=== PATIENT | female | born 1970 | race Caucasian/White ===

== ENCOUNTER 2017-12-31 15:38 | Emergency (ER) | payer SELFPAY ==
[2017-12-31 16:54] LABS: BASO # 0.1 K/uL (0.0-0.2); BASO % 1.3 % (0.0-2.0); EOS % 0.6 % (0.0-4.0); HEMOGLOBIN 13.8 g/dL (12.0-16.0); LYMPH # 1.6 K/uL (1.0-4.3); LYMPH % 26.7 % (20.0-40.0); MEAN CELL VOLUME 86.9 fl (81.0-99.0); MEAN CORPUSCULAR HEMOGLOBIN 28.8 pg (27.0-31.0); MEAN CORPUSCULAR HGB CONC 33.2 g/dL (33.0-37.0); MEAN PLATELET VOLUME 8.8 fl (7.2-11.7); MONO # 0.4 K/uL (0.0-0.8); MONO % 7.4 % (0.0-10.0); NEUT # 3.7 K/uL (1.8-7.0); NRBC % 0.1 % (0.0-0.0); RBC 4.78 Mil/uL (3.80-5.20); RED CELL DISTRIBUTION WIDTH 14.6 % (11.5-14.5); WHITE BLOOD COUNT 5.8 K/uL (4.8-10.8)
[2017-12-31 17:01] LABS: CALCIUM 9.3 mg/dL (8.4-10.2); GFR NON-AFRICAN AMERICAN > 60
--- NOTE | 2017-12-31 17:07 | ED PDOC ---
HPI: Chest Pain Time Seen by Provider: 12/31/17 16:09 Chief Complaint (Nursing): Chest Pain Chief Complaint (Provider): Chest Pain History Per: Patient History/Exam Limitations: no limitations Onset/Duration Of Symptoms: Days (x4) Current Symptoms Are (Timing): Still Present Additional Complaint(s): 47 y/o female with a PMHx of HTN presents to the ED complaining of palpitations , onset 4 days ago. Patient reports palpitations may be contributed to the fact that the day prior she accidentally used a body wash as a lotion and went to sleep without washing it off. Patient reports she woke up with itching throughout her body. However, patient denies any rash. Patient states she thinks she is "intoxicated" by the body wash that was absorbed into her skin and believes her skin is having "problems". Patient additionally denies chest pain, shortness of breath, cough, leg swelling, dizziness and syncope. Patient also believes her blood pressure was recently elevated and has been taking extra Amlodipine and Losartan. PMD: No Provider Past Medical History Reviewed: Historical Data, Nursing Documentation, Vital Signs Vital Signs: Last Vital Signs Temp 98.8 F 12/31/17 18:46 Pulse 81 12/31/17 18:46 Resp 18 12/31/17 18:46 BP 137/73 12/31/17 18:46 Pulse Ox 98 12/31/17 18:46 - Medical History PMH: HTN - Surgical History Surgical History: No Surg Hx - Family History Family History: States: Unknown Family Hx - Allergies Allergies/Adverse Reactions: Allergies Allergy/AdvReac Type Severity Reaction Status Date / Time No Known Allergies Allergy Verified 12/31/17 15:43 Review of Systems ROS Statement: Except As Marked, All Systems Reviewed And Found Negative Cardiovascular: Positive for: Palpitations Skin: Positive for: Other (Itchyness). Negative for: Rash Psych: Negative for: Anxiety, Depression, Suicidal ideation Physical Exam - Reviewed Nursing Documentation Reviewed: Yes Vital Signs Reviewed: Yes - Physical Exam Appears: Positive for: Non-toxic, No Acute Distress Head Exam: Positive for: ATRAUMATIC, NORMOCEPHALIC Skin: Positive for: Normal Color, Warm, Dry. Negative for: Rash Eye Exam: Positive for: Normal appearance, EOMI, PERRL Neck: Positive for: Normal, Painless ROM Cardiovascular/Chest: Positive for: Regular Rate, Rhythm. Negative for: Murmur Respiratory: Positive for: Normal Breath Sounds. Negative for: Respiratory Distress Gastrointestinal/Abdominal: Positive for: Normal Exam, Soft. Negative for: Tenderness Extremity: Positive for: Normal ROM. Negative for: Pedal Edema, Deformity Neurologic/Psych: Positive for: Alert, Oriented. Negative for: Motor/Sensory Deficits - Laboratory Results Result Diagrams: 12/31/17 16:43 12/31/17 16:43 - ECG ECG Rhythm: Positive for: Normal QRS, Sinus Rhythm. Negative for: ST/T Changes Interpretation Of Abn EKG: LVH is present Rate: 76 O2 Sat by Pulse Oximetry: 99 (RA) Pulse Ox Interpretation: Normal - Progress Re-evaluation Time: 18:00 Condition: Re-examined, Improved Medical Decision Making Medical Decision Making: Time: 1642 Impression: Palpitations Differentials include but not limited to cardiac arrhythmia, substance abuse, acute renal failure and anxiety. Plan: -- EKG -- Alcohol Serum -- BMP -- Urine Drug Screen -- Troponin I -- CBC with differentials -- [employer] Scribe Attestation: Documented by Cordelia Rosenberg, acting as a scribe for Dr. Porfirio Delgado MD. Provider Scribe Attestation: All medical record entries made by the Scribe were at my direction and personally dictated by me. I have reviewed the chart and agree that the record accurately reflects my personal performance of the history, physical exam, medical decision making, and the department course for this patient. I have also personally directed, reviewed, and agree with the discharge instructions and disposition. Disposition - Clinical Impression Clinical Impression: Palpitations - Patient ED Disposition Is Patient to be Admitted: No Doctor Will See Patient In The: Office Counseled Patient/Family Regarding: Studies Performed, Diagnosis, Need For Followup - Disposition Referrals: [facility] [Outside] Disposition: Routine/Home Disposition Time: 18:34 Condition: GOOD Additional Instructions: NEO REECE, thank you for letting us take care of you today. Your provider was Porfirio Delgado MD and you were treated for PALPITATIONS. The emergency medical care you received today was directed at your acute symptoms. If you were prescribed any medication, please fill it and take as directed. It may take several days for your symptoms to resolve. Return to the Emergency Department if your symptoms worsen, do not improve, or if you have any other problems. Please contact your doctor or call one of the physicians/clinics you have been referred to that are listed on the Patient Visit Information form that is included in your discharge packet. Bring any paperwork you were given at discharge with you along with any medications you are taking to your follow up visit. Our treatment cannot replace ongoing medical care by a primary care provider outside of the emergency department. Thank you for allowing the [facility] team to be part of your care today. If you had an X-Ray or CT scan: A Radiologist will review the ED reading if any change in treatment is needed we will contact you. If you had a blood, urine, or wound culture: It will take several days for the results, if any change in treatment is needed we will contact you. If you had an STI test: It will take 48 hours for the results. Please call after 1 week if you have not heard back. Instructions: Palpitations
[2017-12-31 17:17] LABS: BARBITURATES, UR NEGATIVE (NEGATIVE); BENZODIAZEPINES, UR NEGATIVE (NEGATIVE); BLOOD UREA NITROGEN 11 mg/dl (7-17); OPIATES, UR NEGATIVE (NEGATIVE); PHENCYCLIDINE, UR NEGATIVE (NEGATIVE)
[2017-12-31 19:20] VITALS: BP 137/73; RESP 18; TEMP 98.8
--- NOTE | 2018-01-01 08:21 | CARD ---
APPROVED REPORT Date of service: 12/31/2017 <Conclusion> Normal sinus rhythm Right atrial enlargement Minimal voltage criteria for LVH, may be normal variant Borderline ECG
[2018-01-01 20:04] VITALS: PULSE 76; O2SAT 99
== END 2017-12-31 19:00 | disposition home or self-care (01) ==
LOC: H.ER 15:38
DX: R00.2 Palpitations (principal); I10 Essential (primary) hypertension
CPT/HCPCS: 80048; 84484; 85025; 93005; 99284; G0480